=== PATIENT | female | born 1965 | race Caucasian/White ===

== ENCOUNTER 2022-12-05 09:30 | Emergency (ER) | payer OTHER ==
[~2022-12-05] VITALS: Ht 157.5 cm; Wt 88.5 kg
[2022-12-05] MEDS ORDERED: CLONAZEPAM1 M1 PO (09:41)
[2022-12-05] MEDS ORDERED: TRAZODONE HCL150 MG PO (09:41)
[2022-12-05] MEDS ORDERED: ESCITALOPRA5 MG/5 ML PO (09:41)
[2022-12-05] MEDS ORDERED: ATORVASTATIN CA10 MG PO (09:42)
[2022-12-05] MEDS ORDERED: RISPERIDONE O0.25 MG PO (09:42)
[2022-12-05] MEDS ORDERED: BACTRIM DS TAB1 EACH PO (17:45)
[2022-12-05] MEDS ORDERED: KETO10TA2 PO (17:45)
== END 2022-12-05 18:10 | disposition home or self-care (01) ==
LOC: ER 09:30
DX: N39.0 Urinary tract infection, site not specified (principal); Z88.5 Allergy status to narcotic agent; Z20.822 Contact with and (suspected) exposure to COVID-19